=== PATIENT | male | born 1995 | race African-American/Black ===

== ENCOUNTER → 2018-05-01 | Outpatient (CLI) | payer OTHER ==
--- NOTE | 2018-05-01 15:01 | XR ---
EXAMINATION TYPE: XR cervical spine comp DATE OF EXAM: 05/01/2018 TECHNIQUE: Frontal, lateral, oblique, swimmers, and open mouth view of the cervical spine are obtaine d. HISTORY: G89.29 other chronic pain COMPARISON: None FINDINGS: The cervical spine is visualized in its entirety from C1 thru the top of T1 level, it is s atisfactory in alignment without evidence of acute fracture or dislocation. The pre-vertebral soft t issue appears within normal limits. The C1-C2 articulation is within normal limits on the open mouth view. There is straightening of usual cervical lordosis. The oblique images are within normal limit s. IMPRESSION: No acute fracture or dislocation is seen in the cervical spine. Straightening of usual c ervical lordosis may relate to muscular sprain/spasm or patient positioning.
--- NOTE | 2018-05-01 15:02 | XR ---
EXAMINATION TYPE: XR thoracic spine 2V DATE OF EXAM: 05/01/2018 CLINICAL HISTORY: Thoracic back pain TECHNIQUE: Frontal, lateral, and swimmer's view of thoracic spine are obtained. COMPARISON: None. FINDINGS: Thoracic spine show satisfactory alignment without evidence of acute fracture or dislocatio n. Vertebral body heights and disc space heights are preserved. Visualized ribs are unremarkable. IMPRESSION: No acute fracture or malalignment is seen in the thoracic spine.
--- NOTE | 2018-05-01 15:03 | XR ---
EXAMINATION TYPE: XR lumbosacral spine min 4V DATE OF EXAM: 05/01/2018 CLINICAL HISTORY: Back pain for one week TECHNIQUE: Frontal, lateral, and oblique images of the lumbar spine are obtained. COMPARISON: FINDINGS: There are 5 lumbar type vertebral bodies identified. The lumbar spine shows satisfactory alignment without evidence of acute fracture or dislocation. Vertebral body heights and disk space he ights are within normal limits. The oblique images appear within normal limits. No pars interartic ularis defects are seen The overlying soft tissue appears unremarkable. IMPRESSION: No acute fracture or dislocation is seen in the lumbar spine.
== END | disposition home or self-care (01) ==
LOC: RADXRMAIN 14:22
PROVIDERS: ATTEND Family Medicine
DX: M54.5 Low back pain (principal); M54.6 Pain in thoracic spine; G89.29 Other chronic pain
CPT/HCPCS: 72050; 72070; 72110

== ENCOUNTER 2022-03-31 16:32 | Emergency (ER) | payer OTHER ==
[2022-03-31] MEDS ORDERED: diphenhydrAMINE 50 MG/ML 1 ML VIAL IM STA (16:42)
[2022-03-31] MEDS ORDERED: methylPREDNISolone SOD SUCCI 125 MG/2 ML VIAL IM ONE (16:42)
[2022-03-31] MEDS ORDERED: FAMOTIDINE 20 MG TAB PO STA (16:42)
--- NOTE | 2022-03-31 16:45 | ED ---
Allergic Reaction HPI - General Chief complaint: Allergic Reaction Stated complaint: possible allergic reaction Time Seen by Provider: 03/31/22 16:38 Source: patient Mode of arrival: ambulatory Limitations: no limitations - History of Present Illness Initial Comments: Patient is a 26-year-old male presenting with chief complaint of "I think I'm having an ALLERGIC reaction". Patient states that today around noon he noticed swelling to the upper lip. Patient thinks he may be ALLERGIC to lemon pepper, he states that a few days ago he was cooking with voluntary seasoning and felt a tingling in his lips, however today symptoms worsened. He is having no difficulty breathing or swallowing. No wheezing or stridor. No nausea, vomiting, abdominal pain. No fever or chills. No other new foods, new medications, or new products. He has not taken any antihistamines at home. - Related Data Home Medications Medication Instructions Recorded Confirmed Methylphenidate HCl [Concerta] 18 mg PO DAILY 08/28/14 08/28/14 cloNIDine [Catapres-TTS] 0.2 mg PO DAILY 08/28/14 08/28/14 Previous Rx's Medication Instructions Recorded Amoxic-Pot Clav 875-125Mg 1 tab PO Q12HR 7 Days #14 tab 03/31/22 [Augmentin 875-125] methylPREDNISolone Dose Pack 4 mg PO DIRECTED #1 packet 03/31/22 [Medrol Dose Pack] Allergies Allergy/AdvReac Type Severity Reaction Status Date / Time No Known Allergies Allergy Verified 03/31/22 16:36 Review of Systems ROS Statement: Those systems with pertinent positive or pertinent negative responses have been documented in the HPI. ROS Other: All systems not noted in ROS Statement are negative. Past Medical History Past Medical History: Asthma Additional Past Medical History / Comment(s): INSOMNIA History of Any Multi-Drug Resistant Organisms: None Reported Additional Past Surgical History / Comment(s): RIGHT KNEE Past Psychological History: Depression Smoking Status: Never smoker Past Alcohol Use History: None Reported Past Drug Use History: None Reported General Exam Limitations: no limitations General appearance: alert, in no apparent distress Head exam: Present: atraumatic, normocephalic, normal inspection Eye exam: Present: normal appearance. Absent: periorbital swelling ENT exam: Present: normal oropharynx, mucous membranes moist, other (Swelling to the upper lip) Expanded Throat exam: normal inspection Neck exam: Present: normal inspection, full ROM Respiratory exam: Present: normal lung sounds bilaterally. Absent: respiratory distress, wheezes, rales, rhonchi, stridor Cardiovascular Exam: Present: regular rate, normal rhythm, normal heart sounds. Absent: systolic murmur, diastolic murmur, rubs, gallop, clicks Neurological exam: Present: alert, oriented X3, CN II-XII intact Psychiatric exam: Present: normal affect, normal mood Skin exam: Present: warm, dry, intact, normal color. Absent: rash Course Vital Signs 03/31/22 03/31/22 16:34 18:08 Temperature 98.4 F 98.2 F Pulse Rate 113 H 99 Respiratory 20 18 Rate Blood Pressure 150/89 142/74 O2 Sat by Pulse 99 96 Oximetry Medical Decision Making - Medical Decision Making Was pt. sent in by a medical professional or institution (ZONIA Hernandez, ETL ANALYST DEVELOPER, urgent care, hospital, or long term...) When possible be specific @ -No Did you speak to anyone other than the patient for history (EMS, parent, family, police, friend...)? What history was obtained from this source @ -No Did you review nursing and triage notes (agree or disagree)? Why? @ -I reviewed and agree with nursing and triage notes Were old charts reviewed (outside hosp., previous admission, EMS record, old EKG, old radiological studies, urgent care reports/EKG's, long term records)? Report findings @ -No old charts were reviewed Differential Diagnosis (chest pain, altered mental status, abdominal pain women, abdominal pain men, vaginal bleeding, weakness, fever, dyspnea, syncope, headache, dizziness, GI bleed, back pain, seizure, CVA, palpatations, mental health)? @ -Differential includes ALLERGIC reaction, cellulitis, sinusitis, this is not an all inclusive list EKG interpreted by me (3pts min.). @ -As above X-rays interpreted by me (1pt min.). @ -None done CT interpreted by me (1pt min.). @ -None done U/S interpreted by me (1pt. min.). @ -None done What testing was considered but not performed or refused? (CT, X-rays, U/S, labs)? Why? @ -None What meds were considered but not given or refused? Why? @ -None Did you discuss the management of the patient with other professionals (professionals i.e. DrBeto, PA, ETL ANALYST DEVELOPER, lab, RT, psych nurse, health and social care teacher, shuttle preparation supervisor, teacher, combatant diver officer, vocational case manager)? Give summary @ -No Was smoking cessation discussed for >3mins.? @ -No Was critical care preformed (if so, how long)? @ -No Were there social determinants of health that impacted care today? How? (Homelessness, low income, unemployed, alcoholism, drug addiction, transportation, low edu. Level, literacy, decrease access to med. care, group home, rehab)? @ -No Was there de-escalation of care discussed even if they declined (Discuss DNR or withdrawal of care, Hospice)? DNR status @ -No What co-morbidities impacted this encounter? (DM, HTN, Smoking, COPD, CAD, Cancer, CVA, ARF, Chemo, Hep., AIDS, mental health diagnosis, sleep apnea, morbid obesity)? @ -None Was patient admitted / discharged? Hospital course, mention meds given and route, prescriptions, significant lab abnormalities, going to OR and other pertinent info. @ -Patient is a 26-year-old male presenting with chief complaint of upper lip swelling, he is concerned for the possibility of ALLERGIC reaction. His lips started tingling 3 days ago, today he noticed significant swelling to the lip. No difficulty breathing or swallowing. On physical examination heart and lungs are clear to auscultation, no visible airway obstruction or stridor. There is significant swelling to the upper lip, swelling does extend up into the lower half of the cheek. Patient admits to some tenderness. Patient is given Benadryl, Solu-Medrol, and Pepcid. On reassessment he reports some improvement in symptoms, no worsening of symptoms during observation period. Patient will also be treated with Augmentin in the event that this is a bacterial infection. He was given a prescription for Medrol Dosepak and the case that this is an ALLERGIC reaction. Follow-up with PCP. Report back to ER with any new or worsening symptoms. Discussed return parameters and answered all questions. P atient conveyed verbal understanding and agreed to the plan. I discussed this case in detail with my attending Dr. Shultz Undiagnosed new problem with uncertain prognosis? @ -No Drug Therapy requiring intensive monitoring for toxicity (Heparin, Nitro, Insulin, Cardizem)? @ -No Were any procedures done? @ -No Diagnosis/symptom? @ -ALLERGIC reaction Acute, or Chronic, or Acute on Chronic? @ -Acute Uncomplicated (without systemic symptoms) or Complicated (systemic symptoms)? @ -Uncomplicated Side effects of treatment? @ -No Exacerbation, Progression, or Severe Exacerbation? @ -No Poses a threat to life or bodily function? How? (Chest pain, [place], [place], pneumonia, PE, COPD, DKA, ARF, appy, cholecystitis, CVA, Diverticulitis, Homicidal, Suicidal, threat to staff... and all critical care pts) @ -No Disposition Clinical Impression: Allergic reaction Disposition: HOME SELF-CARE Condition: Good Instructions (If sedation given, give patient instructions): General Allergic Reaction (ED) Additional Instructions: Follow-up with PCP. Report back to ER with any new or worsening symptoms. Take medication as prescribed. Take [id number] Benadryl as needed per package instructions, do not take before driving or operating heavy machinery as it may cause drowsiness. Prescriptions: Amoxic-Pot Clav 875-125Mg [Augmentin 875-125] 1 tab PO Q12HR 7 Days #14 tab methylPREDNISolone Dose Pack [Medrol Dose Pack] 4 mg PO DIRECTED #1 packet Is patient prescribed a controlled substance at d/c from ED?: No Referrals: Kylah Tomas MD [Primary Care Provider] - 1-2 days Time of Disposition: 18:05
[2022-03-31 18:09] VITALS: BP 142/74; PULSE 99; RESP 18; TEMP 98.2
== END 2022-03-31 18:11 | disposition home or self-care (01) ==
LOC: EC 16:32
DX: R22.0 Localized swelling, mass and lump, head (principal); T78.1XXA Other adverse food reactions, not elsewhere classified, initial encounter; J45.909 Unspecified asthma, uncomplicated; F32.A Depression, unspecified
CPT/HCPCS: 99282; 96372 ×2; J1200; J2930

== ENCOUNTER 2023-04-25 17:54 | Emergency (ER) | payer OTHER ==
[2023-04-25 18:03] VITALS: BP 137/83; PULSE 74; RESP 20; TEMP 99.6
--- NOTE | 2023-04-25 19:48 | ED ---
Abdominal Pain HPI - General Source: patient Mode of arrival: ambulatory Limitations: no limitations <Tom Armando - Last Filed: 05/05/23 04:28> <Narendra Mendez - Last Filed: 05/05/23 18:14> - General Chief Complaint: Abdominal Pain Stated Complaint: vomiting,abd swelling Time Seen by Provider: 04/25/23 19:46 - History of Present Illness Initial Comments: Quicknote 27-year-old male presenting to the ED with a chief complaint of abdominal pain. Patient states earlier today shortly after eating started to experience nausea and vomiting also notes some abdominal pain as well. At this time, patient reports improvement of both nausea and abdominal pain. Some associated diarrhea. (Tom Armando) - Related Data Home Medications Medication Instructions Recorded Confirmed Methylphenidate HCl [Concerta] 18 mg PO DAILY 08/28/14 08/28/14 cloNIDine [Catapres-TTS] 0.2 mg PO DAILY 08/28/14 08/28/14 Previous Rx's Medication Instructions Recorded Amoxic-Pot Clav 875-125Mg 1 tab PO Q12HR 7 Days #14 tab 03/31/22 [Augmentin 875-125] methylPREDNISolone Dose Pack 4 mg PO DIRECTED #1 packet 03/31/22 [Medrol Dose Pack] Allergies Allergy/AdvReac Type Severity Reaction Status Date / Time No Known Allergies Allergy Verified 03/31/22 16:36 Review of Systems ROS Other: All systems not noted in ROS Statement are negative. <Tom Armando - Last Filed: 05/05/23 04:28> ROS Other: All systems not noted in ROS Statement are negative. <Narendra Mendez - Last Filed: 05/05/23 18:14> ROS Statement: Those systems with pertinent positive or pertinent negative responses have been documented in the HPI. Past Medical History Past Medical History: Asthma Additional Past Medical History / Comment(s): INSOMNIA History of Any Multi-Drug Resistant Organisms: None Reported Additional Past Surgical History / Comment(s): RIGHT KNEE Past Psychological History: Depression Smoking Status: Never smoker Past Alcohol Use History: None Reported Past Drug Use History: None Reported <Tom Armando - Last Filed: 05/05/23 04:28> General Exam Limitations: no limitations <Tom Armando - Last Filed: 05/05/23 04:28> - General Exam Comments Initial Comments: Visual Physical Exam Vital signs reviewed General: Well-appearing, nontoxic, no acute distress. Head: Normocephalic, atraumatic Eyes: PERRLA, EOMI ENT: Airway patent Chest: Nonlabored breathing Skin: No visual rash, normal skin tone Neuro: Alert and oriented 3 Musculoskeletal: No gross abnormalities (Tom Armando) Course Vital Signs 04/25/23 17:55 Temperature 99.6 F Pulse Rate 74 Respiratory 20 Rate Blood Pressure 137/83 O2 Sat by Pulse 99 Oximetry Medical Decision Making - Lab Data Result diagrams: 04/25/23 21:00 04/25/23 21:00 <Tom Armando - Last Filed: 05/05/23 04:28> - Lab Data Result diagrams: 04/25/23 21:00 04/25/23 21:00 <Narendra Mendez - Last Filed: 05/05/23 18:14> - Medical Decision Making Quicknote portion performed. Signed Tom Armando PA-C I saw the patient myself in triage however patient left prior to completing medical evaluation. (Tom Armando) - Lab Data Lab Results 04/25/23 04/25/23 04/25/23 Range/Units 21:00 21:00 21:00 WBC 9.3 (3.8-10.6) k/uL RBC 4.27 L (4.30-5.90) m/uL Hgb 13.7 (13.0-17.5) gm/dL Hct 40.7 (39.0-53.0) % MCV 95.3 (80.0-100.0) fL MCH 32.2 (25.0-35.0) pg MCHC 33.8 (31.0-37.0) g/dL RDW 12.7 (11.5-15.5) % Plt Count 156 (150-450) k/uL MPV 7.4 Neutrophils % 72 % Lymphocytes % 19 % Monocytes % 4 % Eosinophils % 3 % Basophils % 0 % Neutrophils # 6.7 (1.3-7.7) k/uL Lymphocytes # 1.8 (1.0-4.8) k/uL Monocytes # 0.4 (0-1.0) k/uL Eosinophils # 0.2 (0-0.7) k/uL Basophils # 0.0 (0-0.2) k/uL Sodium 139 (137-145) mmol/L Potassium 4.1 (3.5-5.1) mmol/L Chloride 106 (98-107) mmol/L Carbon Dioxide 28 (22-30) mmol/L Anion Gap 5 mmol/L BUN 11 (9-20) mg/dL Creatinine 0.84 (0.66-1.25) mg/dL Est GFR (CKD-EPI)AfAm >90 (>60 ml/min/1.73 sqM) Est GFR (CKD-EPI)NonAf >90 (>60 ml/min/1.73 sqM) Glucose 91 (74-99) mg/dL Calcium 8.8 (8.4-10.2) mg/dL Total Bilirubin 0.4 (0.2-1.3) mg/dL AST 24 (17-59) U/L ALT 18 (4-49) U/L Alkaline Phosphatase 59 (38-126) U/L Total Protein 6.6 (6.3-8.2) g/dL Albumin 4.3 (3.5-5.0) g/dL Amylase 94 (30-110) U/L Lipase 134 (23-300) U/L Influenza Type A (PCR) Not Detected (Not Detectd) Influenza Type B (PCR) Not Detected (Not Detectd) RSV (PCR) Not Detected (Not Detectd) SARS-CoV-2 (PCR) Not Detected (Not Detectd) Disposition <Tom Armando - Last Filed: 05/05/23 04:28> <Narendra Mendez - Last Filed: 05/05/23 18:14> Clinical Impression: Abdominal pain Disposition: LEFT AGAINST MEDICAL ADVICE Referrals: Alvaro Fay MD [Primary Care Provider] - 1-2 days
[2023-04-25 21:09] LABS: Basophils % (A) 0 %; Eosinophils # (A) 0.2 k/uL (0-0.7); Eosinophils % (A) 3 %; HCT 40.7 % (39.0-53.0); HGB 13.7 gm/dL (13.0-17.5); Lymphocytes # (A) 1.8 k/uL (1.0-4.8); Lymphocytes % (A) 19 %; MCH 32.2 pg (25.0-35.0); MCHC 33.8 g/dL (31.0-37.0); MCV 95.3 fL (80.0-100.0); Mean Platelet Volume 7.4; Monocytes # (A) 0.4 k/uL (0-1.0); Monocytes % (A) 4 %; Neutrophils # (A) 6.7 k/uL (1.3-7.7); Neutrophils % (A) 72 %; Platelet Count 156 k/uL (150-450); RBC 4.27 m/uL (4.30-5.90); RDW 12.7 % (11.5-15.5); WBC 9.3 k/uL (3.8-10.6)
[2023-04-25 21:32] LABS: ALT 18 U/L (4-49); AST 24 U/L (17-59); African American GFR (CKD) >90 (>60 ml/min/1.73 sqM); Albumin 4.3 g/dL (3.5-5.0); Alkaline Phosphatase 59 U/L (38-126); Amylase 94 U/L (30-110); Anion Gap 5 mmol/L; Blood Urea Nitrogen 11 mg/dL (9-20); Calcium 8.8 mg/dL (8.4-10.2); Carbon Dioxide 28 mmol/L (22-30); Chloride 106 mmol/L (98-107); Glucose 91 mg/dL (74-99); Lipase 134 U/L (23-300); Non-African American GFR(CKD) >90 (>60 ml/min/1.73 sqM); Potassium 4.1 mmol/L (3.5-5.1); Sodium 139 mmol/L (137-145); Total Bilirubin 0.4 mg/dL (0.2-1.3); Total Protein 6.6 g/dL (6.3-8.2)
== END 2023-04-25 22:39 | disposition left against medical advice (07) ==
LOC: EC 17:54
DX: R10.9 Unspecified abdominal pain (principal); J45.909 Unspecified asthma, uncomplicated; Z86.59 Personal history of other mental and behavioral disorders; Z20.822 Contact with and (suspected) exposure to COVID-19; Z53.29 Procedure and treatment not carried out because of patient's decision for other reasons
CPT/HCPCS: 36415; 80053; 82150; 83690; 85025; 87636; 99284

== ENCOUNTER 2023-07-10 22:39 | Emergency (ER) | payer OTHER ==
[2023-07-10 23:09] VITALS: RESP 18
--- NOTE | 2023-07-10 23:22 | ED ---
ENT HPI - General Chief complaint: ENT Stated complaint: Ear pain Time Seen by Provider: 07/10/23 22:43 Source: patient Mode of arrival: ambulatory Limitations: no limitations - History of Present Illness Initial comments: 28-year-old male presents emergency department reporting left ear pain. Patient does have pierced ears and states that he has previously had abscesses to the left ear. He had noted pain and swelling for the past couple of days. He has yet to get any discharge from the ear. States the pain is getting worse therefore presents to the emergency department for incision and drainage. He denies any fevers. No history of MRSA. No other alleviating, precipitating or modifying factors - Related Data Home Medications Medication Instructions Recorded Confirmed Methylphenidate HCl [Concerta] 18 mg PO DAILY 08/28/14 08/28/14 cloNIDine [Catapres-TTS] 0.2 mg PO DAILY 08/28/14 08/28/14 Previous Rx's Medication Instructions Recorded Amoxic-Pot Clav 875-125Mg 1 tab PO Q12HR 7 Days #14 tab 03/31/22 [Augmentin 875-125] methylPREDNISolone Dose Pack 4 mg PO DIRECTED #1 packet 03/31/22 [Medrol Dose Pack] Bacitracin Zinc Oint 1 applic TOPICAL BID #28 gm 07/10/23 Allergies Allergy/AdvReac Type Severity Reaction Status Date / Time No Known Allergies Allergy Verified 07/10/23 22:42 Review of Systems ROS Statement: Those systems with pertinent positive or pertinent negative responses have been documented in the HPI. ROS Other: All systems not noted in ROS Statement are negative. Past Medical History Past Medical History: Asthma Additional Past Medical History / Comment(s): INSOMNIA History of Any Multi-Drug Resistant Organisms: None Reported Additional Past Surgical History / Comment(s): RIGHT KNEE Past Psychological History: Depression Smoking Status: Never smoker Past Alcohol Use History: None Reported Past Drug Use History: None Reported General Exam Limitations: no limitations General appearance: alert, in no apparent distress Head exam: Present: atraumatic, normocephalic, normal inspection Eye exam: Present: normal appearance, PERRL, EOMI. Absent: scleral icterus, conjunctival injection, periorbital swelling ENT exam: Present: mucous membranes moist, TM's normal bilaterally, other (Patient has tenderness and fluctuance to the left ear lobe. Size of abscess measures 5 mm x 5 mm. No active drainage) Neck exam: Present: normal inspection. Absent: tenderness, meningismus, lymphadenopathy Course Vital Signs 07/10/23 07/10/23 22:40 23:35 Temperature 98.4 F 98.5 F Pulse Rate 91 80 Respiratory 18 18 Rate Blood Pressure 137/79 130/72 O2 Sat by Pulse 99 99 Oximetry Procedures - Incision & Drainage Consent Obtained: verbal consent Indication: Abscess Site: other (Earlobe) Size (cm): 5 (mm) Anesthetic Used: lidocaine 1% Amount (mLs): 2 I&D Cleaning Method: Alcohol Wipe Sterile Field Used?: Yes Ultrasound used: No Needle Aspiration Performed?: Yes Irrigation Performed?: No I&D Drainage Obtained: Pus Insertion of drain: No Culture Obtained?: No Patient Tolerated Procedure: well, no complications Medical Decision Making - Medical Decision Making Was pt. sent in by a medical professional or institution (ZONIA Hernandez, DIRECTOR OF THE BIOPHYSICS FACILITY, urgent care, hospital, or fci...) When possible be specific @ -No Did you speak to anyone other than the patient for history (EMS, parent, family, police, friend...)? What history was obtained from this source @ -No Did you review nursing and triage notes (agree or disagree)? Why? @ -I reviewed and agree with nursing and triage notes Were old charts reviewed (outside hosp., previous admission, EMS record, old EKG, old radiological studies, urgent care reports/EKG's, fci records)? Report findings @ -No old charts were reviewed Differential Diagnosis (chest pain, altered mental status, abdominal pain women, abdominal pain men, vaginal bleeding, weakness, fever, dyspnea, syncope, headache, dizziness, GI bleed, back pain, seizure, CVA, palpatations, mental health, musculoskeletal)? @ -Abscess, cellulitis, infected cyst EKG interpreted by me (3pts min.). @ -Not done X-rays interpreted by me (1pt min.). @ -None done CT interpreted by me (1pt min.). @ -None done U/S interpreted by me (1pt. min.). @ -None done What testing was considered but not performed or refused? (CT, X-rays, U/S, labs)? Why? @ -None What meds were considered but not given or refused? Why? @ -None Did you discuss the management of the patient with other professionals (professionals i.e. , PA, DIRECTOR OF THE BIOPHYSICS FACILITY, lab, RT, psych nurse, protective services social worker, senior counsel commercial, teacher, peace officer, supportive employment case manager)? Give summary @ -No Was smoking cessation discussed for >3mins.? @ -No Was critical care preformed (if so, how long)? @ -No Were there social determinants of health that impacted care today? How? (Homelessness, low income, unemployed, alcoholism, drug addiction, transportation, low edu. Level, literacy, decrease access to med. care, care home, rehab)? @ -No Was there de-escalation of care discussed even if they declined (Discuss DNR or withdrawal of care, Hospice)? DNR status @ -No What co-morbidities impacted this encounter? (DM, HTN, Smoking, COPD, CAD, Cancer, CVA, ARF, Chemo, Hep., AIDS, mental health diagnosis, sleep apnea, morbid obesity)? @ -None Was patient admitted / discharged? Hospital course, mention meds given and route, prescriptions, significant lab abnormalities, going to OR and other pertinent info. @ -Upon arrival patient seen and evaluated in room 32. Thorough history and physical exam was performed. The area was cleansed with an alcohol wipe. I then placed 2 cc of lidocaine without epinephrine into the area using a 23-gauge needle. After I instilled the lidocaine I did withdraw 1 cc of pustular material. The needle was removed and I continued to express another cc of pustular drainage from the area. Patient is instructed to keep warm compresses on the site. Continue to express any drainage. He will place bacitracin to the area and follow-up with dermatology for further management as this is a recurrent issue for him. Patient was agreeable to this plan and he was discharged in stable condition Undiagnosed new problem with uncertain prognosis? @ -No Drug Therapy requiring intensive monitoring for toxicity (Heparin, Nitro, Insulin, Cardizem)? @ -No Were any procedures done? @ -Yes, needle I&D Diagnosis/symptom? @ -Acute left earlobe abscess Acute, or Chronic, or Acute on Chronic? @ -Acute on chronic Uncomplicated (without systemic symptoms) or Complicated (systemic symptoms)? @ -Uncomplicated Side effects of treatment? @ -No Exacerbation, Progression, or Severe Exacerbation? @ -No Poses a threat to life or bodily function? How? (Chest pain, [place], [place], pneumonia, PE, COPD, DKA, ARF, appy, cholecystitis, CVA, Diverticulitis, Homicidal, Suicidal, threat to staff... and all critical care pts) @ -No Disposition Clinical Impression: Abscess, earlobe Disposition: HOME SELF-CARE Condition: Stable Instructions (If sedation given, give patient instructions): Abscess Incision and Drainage (ED) Additional Instructions: Place warm compresses to the site. Continue to express the pus from the area. Placed bacitracin on the ear canal twice a day and follow-up with the plastic surgeon for possible further excision Prescriptions: Bacitracin Zinc Oint 1 applic TOPICAL BID #28 gm Is patient prescribed a controlled substance at d/c from ED?: No Referrals: Alvaro Fay MD [Primary Care Provider] - 1-2 days Latrell Villela MD [STAFF PHYSICIAN] - 1-2 days Time of Disposition: 23:22
[2023-07-10] MEDS: BACITRACIN OINT 1 EACH PACKET TOPICAL ONE (23:31)
[2023-07-10 23:54] VITALS: BP 130/72; PULSE 80; TEMP 98.5
== END 2023-07-10 23:46 | disposition home or self-care (01) ==
LOC: EC 22:39
DX: H66.42 Suppurative otitis media, unspecified, left ear (principal)
CPT/HCPCS: 10060; 99282